=== PATIENT | female | born 1960 | race African-American/Black ===

== ENCOUNTER 2018-01-28 12:01 | Outpatient (CLI) | payer BC, OTHER ==
--- NOTE | 2018-01-28 14:15 | MMO ---
BILATERAL MAMMOGRAMS: History: Screening mammography. Comparison: None. Baseline study. This study is interpreted with the assistance of computer aided detection. FINDINGS: Scattered fibroglandular densities and benign appearing calcifications are apparent. Multiple partial ly obscured oval and lobular isodense nodules in varying size are present throughout each breast. Wit hin the central aspect of the left breast, a dominant irregular shaped hyperdense mass measures up to 2.4 cm and warrants further evaluation. No spiculation or suspicious microcalcifications. IMPRESSION: Lobular dominant mass in the left breast warrants further evaluation. BIRADS category 0 - incomplete exam. Further imaging needed. Patient will be re-called for additional views of the left breast. Sono gram should also be scheduled. POS: ABEL
== END 2018-01-28 12:02 | disposition home or self-care (01) ==
LOC: SCSMAMMO 12:01
PROVIDERS: ATTEND Family Medicine
DX: Z12.31 Encounter for screening mammogram for malignant neoplasm of breast (principal); N63.20 Unspecified lump in the left breast, unspecified quadrant
CPT/HCPCS: 77067

== ENCOUNTER 2018-02-12 08:52 | Outpatient (CLI) | payer OTHER | END 2018-02-12 08:53 | disposition home or self-care (01) | LOC: BICMAMMO 08:52 | PROVIDERS: ATTEND Family Medicine | DX: N63.20 Unspecified lump in the left breast, unspecified quadrant; Z80.3 Family history of malignant neoplasm of breast | CPT/HCPCS: G0279 ==

== ENCOUNTER → 2018-02-28 | Day surgery (SDC) | payer OTHER | LOC: BICULT 16:27 | PROVIDERS: ATTEND Family Medicine | PROC: 0HBU3ZX Excision of Left Breast, Percutaneous Approach, Diagnostic (ICD-10-PCS; principal; 2018-02-28) | DX: D24.2 Benign neoplasm of left breast (principal); E11.9 Type 2 diabetes mellitus without complications; I10 Essential (primary) hypertension; Z79.899 Other long term (current) drug therapy | CPT/HCPCS: 19083; 88305 ==

== ENCOUNTER 2024-04-21 08:43 | Day surgery (SDC) | payer MEDICARE ==
[2024-04-20 14:47] VITALS: BMI 27.8
[2024-04-21] MEDS ORDERED: Lidocaine 2% PF 5 ML VIAL ONE (11:23)
[2024-04-21] MEDS ORDERED: PROPOFOL 40 ML ONE (11:23)
[2024-04-21] MEDS ORDERED: PROPOFOL 20 ML ONE ×2 (11:52→13:16)
== END 2024-04-21 13:00 | disposition home or self-care (01) ==
LOC: SDC 08:43
PROVIDERS: ATTEND Internal Medicine Gastroenterology
PROC: 0DJD8ZZ Inspection of Lower Intestinal Tract, Via Natural or Artificial Opening Endoscopic (ICD-10-PCS; principal; 2024-04-21)
DX: Z12.11 Encounter for screening for malignant neoplasm of colon (principal); Q43.8 Other specified congenital malformations of intestine; I10 Essential (primary) hypertension; K21.9 Gastro-esophageal reflux disease without esophagitis; E11.9 Type 2 diabetes mellitus without complications; D50.9 Iron deficiency anemia, unspecified; E78.5 Hyperlipidemia, unspecified; Z80.0 Family history of malignant neoplasm of digestive organs
CPT/HCPCS: G0105; J2001; J2704